=== PATIENT | male | born 1960 | race Caucasian/White ===

== ENCOUNTER 2024-09-16 16:59 | Inpatient (IN) | payer OTHER ==
[~2024-09-16] VITALS: Ht 182.9 cm; Wt 127.0 kg
[~2024-09-16 16:59] MED LIST: NS 1,000 ML IV SCH
[2024-09-16 17:53] LABS: BASOPHILS ABSOLUTE AUTO 0.02 K/mm3 (0.00-0.23); BASOPHILS PERCENT AUTO 0 % (0-2); EOSINOPHILS ABSOLUTE AUTO 0.03 K/mm3 (0.00-0.68); EOSINOPHILS PERCENT AUTO 0 % (0-6); Hematocrit 40.8 % (37.0-53.0); Hemoglobin 13.5 g/dL (13.5-17.5); IMMATURE GRAN ABSOLUTE AUTO 0.06 K/mm3 (0.00-0.10); IMMATURE GRAN PERCENT AUTO 0 % (0-1); LYMPHOCYTES ABSOLUTE AUTO 1.07 K/mm3 (0.84-5.20); LYMPHOCYTES PERCENT AUTO 8 % (21-46); MONOCYTES ABSOLUTE AUTO 1.34 K/mm3 (0.16-1.47); MONOCYTES PERCENT AUTO 10 % (4-13); Mean Corpuscular HGB 27.7 pg (26.0-34.0); Mean Corpuscular HGB Conc 33.1 g/dL (31.5-36.5); Mean Corpuscular Volume 84 fL (80-100); Mean Platelet Volume 9.1 fL (9.1-12.4); NEUTROPHILS ABSOLUTE AUTO 10.85 K/mm3 (1.96-9.15); NEUTROPHILS PERCENT AUTO 81 % (41-73); Platelet Count 199 K/mm3 (150-400); RDW Coefficient Variation 14.4 % (11.7-14.2); RDW Standard Deviation 44.1 fL (35.1-46.3); Red Blood Cell Count 4.87 M/mm3 (4.30-5.90); White Blood Cell Count 13.37 K/mm3 (4.00-11.30)
[2024-09-16 18:06] LABS: Albumin, Blood 3.6 g/dL (3.4-5.0); Bilirubin, Total 1.2 mg/dL (0.1-1.0); Bun/Creatinine Ratio 18.5 (12.0-20.0); Calcium, Blood 8.3 mg/dL (8.5-10.1); Creatinine, Blood 1.24 mg/dL (0.60-1.20); Globulin, Blood 3.6 g/dL (2.2-4.0); Potassium, Blood 4.2 mmol/L (3.5-5.5); Total Protein, Blood 7.2 g/dL (6.4-8.2)
[2024-09-16] MEDS ORDERED: NS 1,000 ML IV SCH (20:15)
[2024-09-16] MEDS ORDERED: HYDROmorphone HCl/Pf 1MG SYR IV ONE ×2 (20:15→22:00)
[2024-09-16] MEDS ORDERED: DiphenhydrAMINE HCl 50 MG/ML 1ML Vial IV ONE (20:25)
[2024-09-16] MEDS ORDERED: Metoclopramide HCl 5MG / ML 2ML Vial IV ONE (20:25)
[2024-09-16] MEDS ORDERED: CefTRIAXone Sodium 1,000 MG in NS 50 ML IV ONE (20:50)
[2024-09-16 20:56] LABS: C-REACTIVE PROTEIN, EXT RANGE 12.9 mg/dL (0.000-0.300)
[2024-09-16] MEDS ORDERED: OxyCODONE 10/Acetamin 325 TABLET PO PRN (23:20)
[2024-09-16] MEDS ORDERED: Acetaminophen 325 MG TABLET PO PRN (23:25)
[2024-09-16] MEDS ORDERED: CefTRIAXone Sodium 1,000 MG in NS 100 ML IV ONE (23:55)
[2024-09-17] LABS: Source, Urine Clean Catch
[2024-09-17 00:13] LABS: Bilirubin, Urine Neg (Neg); Blood, Urine 1+ (Neg); Glucose Qualitative, Urine Neg (Neg); Ketones, Urine Neg (Neg); Leukocyte Esterase, Urine 1+ (Neg); Nitrite, Urine Neg (Neg); Protein, Urine 1+ (Neg); Urobilinogen, Urine NORM (Normal)
[2024-09-17 00:38] LABS: Appearance, Urine Clear (Clear); Color, Urine Yellow (P-Yellow)
[2024-09-17 00:39] LABS: Bacteria Few /hpf; Red Blood Cells, Urine 0-2 /hpf (0-2); Squamous Epithelial Cells Few /hpf (Few)
[2024-09-17] MEDS ORDERED: Vancomycin HCL 2,500 MG in NS 500 ML IV ONE (01:40)
[2024-09-17] MEDS ORDERED: DiphenhydrAMINE HCl 50 MG/ML 1ML Vial IV ONE (04:45)
[2024-09-17] MEDS ORDERED: ALLO300 PO (05:21)
[2024-09-17] MEDS ORDERED: WARF7.5 PO (05:23)
[2024-09-17] MEDS ORDERED: MethylPREDNISolone Sod Succ 125 MG Vial IV ONE (05:30)
[2024-09-17] MEDS ORDERED: Morphine Sulfate 10 MG/ML 1MLSYR IV PRN (05:30)
[2024-09-17 07:17] LABS: BASOPHILS ABSOLUTE AUTO 0.03 K/mm3 (0.00-0.23); BASOPHILS PERCENT AUTO 0 % (0-2); EOSINOPHILS ABSOLUTE AUTO 0.08 K/mm3 (0.00-0.68); EOSINOPHILS PERCENT AUTO 1 % (0-6); Hematocrit 35.8 % (37.0-53.0); Hemoglobin 11.9 g/dL (13.5-17.5); IMMATURE GRAN ABSOLUTE AUTO 0.03 K/mm3 (0.00-0.10); IMMATURE GRAN PERCENT AUTO 0 % (0-1); LYMPHOCYTES ABSOLUTE AUTO 1.14 K/mm3 (0.84-5.20); LYMPHOCYTES PERCENT AUTO 13 % (21-46); MONOCYTES PERCENT AUTO 13 % (4-13); Mean Corpuscular HGB 28.4 pg (26.0-34.0); Mean Corpuscular HGB Conc 33.2 g/dL (31.5-36.5); Mean Corpuscular Volume 85 fL (80-100); Mean Platelet Volume 9.6 fL (9.1-12.4); NEUTROPHILS ABSOLUTE AUTO 6.13 K/mm3 (1.96-9.15); NEUTROPHILS PERCENT AUTO 72 % (41-73); Platelet Count 157 K/mm3 (150-400); RDW Coefficient Variation 14.5 % (11.7-14.2); RDW Standard Deviation 44.3 fL (35.1-46.3); Red Blood Cell Count 4.19 M/mm3 (4.30-5.90); White Blood Cell Count 8.51 K/mm3 (4.00-11.30)
[2024-09-17 07:19] LABS: International Normalized Ratio 2.09; Prothrombin Time Results 21.2 Sec (9.7-11.5)
[2024-09-17 07:27] LABS: Albumin/Globulin Ratio 0.9 (0.8-1.8); Bilirubin, Total 0.7 mg/dL (0.1-1.0); Bun/Creatinine Ratio 21.4 (12.0-20.0); Creatinine, Blood 0.89 mg/dL (0.60-1.20); Globulin, Blood 3.2 g/dL (2.2-4.0); Magnesium, Blood 2.1 mg/dL (1.6-2.4); Potassium, Blood 3.7 mmol/L (3.5-5.5); Total Protein, Blood 6.2 g/dL (6.4-8.2)
[2024-09-17 07:33] VITALS: BP 104/76
--- NOTE | 2024-09-17 07:52 | NUR ---
ASSUMPTION OF CARE/SHIFT SUMMARY PT ARRIVED TO ICU 10 VIA BED FROM ED AT 0500. PT IN MILD DISTRESS FROM SEVERE ITCHING ENGENDERED BY RASH/POTENTIAL REACTION TO ABX (VANCO VS ROCEPHIN). PT GIVEN 25MG BENADRYL IN ED. PT STILL ITCHING. PROVIDER CALLED AND ORDER PLACED FOR SOLUMEDROL. PT ALSO C/O 8/10 THROBBING PAIN IN RIGHT FOOT. ORDER PLACED FRO PRN MORPHINE IN ADDITION TO THE PERCOCET PT ALREADY RECEIVED AT 0220. NO CHEST PAIN/PRESSURE. NO SOB. SINUS RHYTHM WITH STABLE BP. PT TAKES WARFARIN. SAT >95% ON RA. LUNGS CLEAR IN ALL LOWERY. PT USES CPAP FOR AWA- BROUGHT OWN MACHINE WITH HIM. BOWEL SOUNDS PRESENT THROUGHOUT. NO AB PAIN, N/V. PT USES URINAL. PT STEADY ON FEET. SALINE LOCKED WITH NEW PIV IN LEFT WRIST. RIGHT AC PIV IS QUESTIONABLE DUE TO PAIN ON FLUSHING AFTER ADMINISTERING PAIN MEDS IV. NO PAIN WITH FIRST FLUSH OR MORPHINE HOWEVER. PT WORRIED THAT HE MAY NOT HAVE RECEIVED DOSE OF MORPHINE. REPORT GIVEN TO ONCOMING RN.
[2024-09-17] MEDS ORDERED: WARF5 PO (08:56)
[2024-09-17] MEDS ORDERED: Docusate Sodium 100 MG Cap PO SCH (09:00)
--- NOTE | 2024-09-17 09:17 | NUR ---
AM NOTE: PATIENT ALERT AND ORIENTED X4. ABLE TO MOVE ALL EXTREMITIES. RIGHT FOOT CELLULITIS WITH REDNESS, WARMTH AND SWELLING. REDNESS OUTLINED WITH SKIN MARKER. TELE READING SINUS RHYTHM WITH HR 60-70'S. DENIES CHEST PAIN/PRESSURE/PALPITATIONS. SBP 100'S. PPP. IV'S FLUIDS INFUSING PER EMAR. WEARING HOME CPAP WHEN SLEEPING, OTHERWISE ON ROOM AIR. SATING 96%. DENIES SOB/COUGH. EVEN AND UNLABORED RESPIRTATIONS. BOWEL TONES PRESENT IN ALL FOUR QUADRANTS. USING URINAL TO VOID. DIET ORDERS IN PLACE AND BLOOD SUGAR CHECKS ACHS. DENIES ABDOMINAL PAIN/NAUSEA. DR. MCBRIDE TO BEDSIDE THIS AM, THIS RN PRESENT FOR MD SILVA. PLAN FOR PODIATRY CONSULT THIS AFTERNOON WITH DR. MARQUEZ. MED NO TELE TRANSFER. THIS RN DISCUSSED POSSIBLE REACTION TO ONE OF THE TWO ANTIBIOITCS THAT WAS INFUSED IN EMERGENCY ROOM. PATIENT WITH HISTORY OF MRSA AND HOSPITALIZED BUT UNSURE IF HE RECEIVED VANCOMYCIN DURING THAT ADMISSION. PATIENT HAS HIVE LIKE RASH NOTED ON POSTERIOR LEFT THIGH AND BILATERAL FOREARMS. CALL LIGHT IN REACH. DENIES NEEDS AT THIS TIME.
[2024-09-17] MEDS ORDERED: DiphenhydrAMINE HCl 50 MG/ML 1ML Vial IV PRN (10:25)
--- NOTE | 2024-09-17 10:51 | NUR ---
UPDATE: PATIENT COMPLAINS OF INCREASED ITCHINESS. HIVES NOTED TO HAVE SPREAD FROM POSTERIOR LEFT THIGH TO BILATERAL ANTERIOR THIGHS WELL BILATERAL ARMS. DR. MCBRIDE CALLED BY THIS RN TO UPDATE. ORDERS FOR BENADRYL 25 MG IV Q6 PRN FOR ITCHINESS. ORDER IN PLACE. IV BENADRYL ADMINISTERED. INSTRUCTOR WEAVING WARNER UPDATED WELL.
[2024-09-17] MEDS ORDERED: Insulin Regular 100 UNIT/ML 10ML Vial SC SCH ×2 (11:30)
[2024-09-17 11:36] VITALS: BP 101/74
--- NOTE | 2024-09-17 13:57 | NUR ---
DR. MARQUEZ BY TO SEE PATIENT, THIS RN AT BEDSIDE FOR MD ROUNDING. WOUND CULTURE SENT TO LAB. DRESSING PLACED BY MD. WOUND CARE ORDERS IN PLACE. PLAN FOR MRI AND ARTERIAL STUDY. PATIENT IN RECLINER AT THIS TIME. CALL LIGHT IN REACH.
[2024-09-17] MEDS ORDERED: Vancomycin HCL 1,250 MG in NS 250 ML IV SCH (15:00)
[2024-09-17] MEDS ORDERED: Vancomycin HCL 1,500 MG in NS 250 ML IV SCH (15:00)
[2024-09-17 15:29] VITALS: BP 104/78
--- NOTE | 2024-09-17 16:05 | NUR ---
ULTRASOUND AT BEDSIDE AT THIS TIME.
[2024-09-17] MEDS ORDERED: FURO80 PO (16:47)
[2024-09-17] MEDS ORDERED: Bisoprolol Fumar5 MG PO (16:47)
[2024-09-17] MEDS ORDERED: GLIPIZIDE-METF1 EAC2 PO (16:48)
[2024-09-17] MEDS ORDERED: Prinivil10 MG PO (16:49)
[2024-09-17] MEDS ORDERED: LANS15EC PO (16:49)
[2024-09-17] MEDS ORDERED: SPIR25 PO (16:49)
[2024-09-17] MEDS ORDERED: MULTIVITAMIN PO (16:50)
[2024-09-17] MEDS ORDERED: EZET10 PO (16:51)
[2024-09-17] MEDS ORDERED: Vitamin D1000 UNI1 PO (16:51)
[2024-09-17] MEDS ORDERED: ATOR80 PO (16:52)
[2024-09-17] MEDS ORDERED: ASPI81CH PO (16:52)
[2024-09-17] MEDS ORDERED: Percocet 10-321 EACH PO (16:53)
[2024-09-17] MEDS ORDERED: AMBIEN10 MG PO (16:53)
[2024-09-17] MEDS ORDERED: Warfarin Sodium 5 MG Tab PO ONE (18:00)
--- NOTE | 2024-09-17 18:03 | NUR ---
SHIFT SUMMARY: PATIENT REMAINS ALERT AND ORIENTED X4. INTERMIT RIGHT FOOT PAIN WELL "EVERYWHERE" SORENESS. SEE PREVIOUS NOTES FOR UPDATES. REMAINS ON ROOM AIR, HOME CPAP AT BEDSIDE. TELE SHOWING SR WITH 1ST DEGREE BLOCK AND PVC'S. HR 70-80'S. SBP 100'S. USING URINAL TO VOID. TOLERATING PO DIET. ACHS BLOOD SUGARS. AT BEDSIDE. PLAN FOR RIGHT FOOT MRI. VASCULAR ULTRASOUND COMPLETED AND RESULTS PENDING. RIGHT FOOT DRESSING REMAINS C/D/I. HOME MED REC COMPLETED WITH LIST BROUGHT IN BY . HIVES IMPROVED WITH IV BENADRYL. CALL LIGHT IN REACH. DENIES NEEDS AT THIS TIME.
[2024-09-17 20:12] VITALS: BP 110/74
[2024-09-17] MEDS ORDERED: CefTRIAXone Sodium 2,000 MG in NS 100 ML IV SCH (21:00)
[2024-09-17] MEDS ORDERED: Linezolid 600 MG Tab PO SCH (21:00)
[2024-09-17] MEDS ORDERED: Zolpidem Tartrate 10 MG Tab PO ONE (21:15)
--- NOTE | 2024-09-17 22:24 | NUR ---
ASSUMPTION OF CARE: ASSUMED CARE OF PT AT 1905 WITH DANI LEWIS. PT IS IND IN RROM AND A&OX4 W/ AT BEDSIDE. PT USES BEDSIDE URINAL IND. PT HAS RIGHT LOWER FOOT CELLULITIS AND FOOT WRAPPED,CLEAN AND INTACT. PT HAS A PATENT IV TO THE L WRIST.PT TOOK MEDS WWW AND WAS GIVEN 2 UNITS OF REG INSULIN PER SLIDING SCALE (SEE EMAR). PT IS MED FLOOR STATUS ON TELE AND SR @71 W/BBB AND 1ST DEG BLOCK. PT HAS TOLERATED A SNACK WELL TONIGHT AND WEARS A CPAP WHILE SLEEPING AND RA WHEN AWAKE. PT HAS CALL LIGHT IN REACH AND MAKES NEEDS KNOWN.
[2024-09-18 02:53] VITALS: BP 107/67
[2024-09-18] MEDS ORDERED: Zolpidem Tartrate 5 MG Tab PO PRN (03:54)
[2024-09-18 04:04] LABS: Hematocrit 37.9 % (37.0-53.0); Hemoglobin 12.8 g/dL (13.5-17.5); Mean Corpuscular HGB 28.3 pg (26.0-34.0); Mean Corpuscular HGB Conc 33.8 g/dL (31.5-36.5); Mean Corpuscular Volume 84 fL (80-100); Mean Platelet Volume 9.2 fL (9.1-12.4); Platelet Count 201 K/mm3 (150-400); RDW Coefficient Variation 14.3 % (11.7-14.2); RDW Standard Deviation 43.8 fL (35.1-46.3); Red Blood Cell Count 4.53 M/mm3 (4.30-5.90); White Blood Cell Count 13.11 K/mm3 (4.00-11.30)
[2024-09-18 04:18] LABS: International Normalized Ratio 1.38; Prothrombin Time Results 14.4 Sec (9.7-11.5)
[2024-09-18 04:23] LABS: Albumin, Blood 2.9 g/dL (3.4-5.0); Anion Gap 10 mmol/L (3-11); Blood Urea Nitrogen 28 mg/dL (8-24); Bun/Creatinine Ratio 32.5 (12.0-20.0); CO2, Blood 25 mmol/L (21-32); Chloride, Blood 104 mmol/L (98-108); Creatinine, Blood 0.86 mg/dL (0.60-1.20); Glomerular Filtration Rate 98 (60-); Glucose, Blood 210 mg/dL (70-99); Magnesium, Blood 2.4 mg/dL (1.6-2.4); Phosphorus, Blood 4.2 mg/dL (2.5-4.9); Potassium, Blood 4.5 mmol/L (3.5-5.5); Sodium, Blood 134 mmol/L (136-145)
--- NOTE | 2024-09-18 05:11 | NUR ---
SHIFT SUMM: PT HAS BEEN RESTING AND RELAXING MOST OF THE SHIFT AND IND IN ROOM. PT HAS TOLERATED CPAP WELL WHILE ASLEEP AND RA WHEN AWAKE. PT USES BEDSIDE URINAL IND. PT RECIEVED PAIN MEDICATION NEEDED (SEE EMAR) GIVEN BY DANI LEWIS. PT HAS PATENT IV TO LEFT WRIST. PT REMAINS ON TELE W NSR IN THE 60-70'S THIS SHIFT AND HAS A 1ST DEG BLOCK AND BBB. WOUND DRESSING REMAINS INTACT AND CLEAN. PT HAS CALL LIGHT IN REACH AND CALLS TO MAKE NEEDS KNOWN. BED LOW AND LOCKED FOR SAFETY.
[2024-09-18 07:54] VITALS: BP 108/68
--- NOTE | 2024-09-18 08:54 | NUR ---
CARE ASSUMPTION PT WAS ASLEEP IN ROOM DURING REPORT FROM HUMAN RESOURCES PROFESSIONAL NURSE'S. UPON ENTERING THE ROOM PT WAS ASLEEP ON HIS RIGHT SIDE WEARING CPAP. PT WOKEN UP FROM VERBAL STIMULI AND ADJUSTED HIMSELF IN BED TO RECEIVE MORNING MEDICATION. PT SITUATED IN BED FOR BREAKFAST, UNDERSTOOD PLAN OF CARE FOR TODAY TO GO RECEIVE MRI AT 1000.
[2024-09-18] MEDS ORDERED: Insulin Regular 100 UNIT/ML 10ML Vial SC SCH (12:00)
--- NOTE | 2024-09-18 14:10 | NUR ---
SHIFT SUMMARY ([id number]) PT IS ALERT AND ORIENTED, ABLE TO AMBULATE INDEPENDENTLY IN ROOM, AND IS PLEASANT IN CONVERSATION. PT SLIDING SCALE CHANGED FROM LOW TO HIGH BEFORE LUNCH INSULIN COVERAGE. PT WENT DOWN FOR AN MRI AT 1000 THIS MORNING AND SPOKE WITH SENIOR PIPING DESIGNER DOC ABOUT RESULTS AFTER LUNCH. PT IS TO BE NPO AT MIDNIGHT FOR SUGERY IN THE AM AND NURSE TO HOLD EVENING WARFARIN DOSE PER GABRIELE VARELA. PT'S HAS BEEN AT BEDSIDE WITH PATIENT SINCE AFTER BREAKFAST AND IS PLEASANT WITH STAFF. PT IS TO BE MOVED TO MEDICAL FLOOR AND WILL GIVE REPORT TO MEDICAL FLOOR NURSE .
[2024-09-18 14:31] VITALS: BP 118/65
[2024-09-18 15:42] VITALS: BP 133/68
--- NOTE | 2024-09-18 15:53 | NUR ---
TRANSFER NOTE PT TRANSFERRED FROM ICU, REPORT RECEIVED FROM DEBBIE LANGFORD. PT ORIENTED TO THE ROOM. HIS IS AT THE BS. MEDICATED FOR PAIN PER THE EMAR.
--- NOTE | 2024-09-18 17:23 | NUR ---
SHIFT SUMMARY PT AOX4, INDEPENDENT IN THE ROOM. NO EVENTS PER TELE SINCE TRANSFER. REPOSITIONS SELF IN BED. SURGERY TOMORROW, NPO AT MIDNIGHT TONIGHT. CALLS AND MAKES HIS NEEDS KNOWN. NO ACUTE EVENTS SINCE THE TRANSFER. CALL LIGHT WITHIN REACH, BED LOCKED AND IN THE LOWEST POSITION. WILL REPORT TO ONCOMING NURSE.
[2024-09-18] MEDS ORDERED: Warfarin Sodium 5 MG Tab PO SCH (18:00)
[2024-09-18 20:34] VITALS: BP 121/76
[2024-09-18] MEDS ORDERED: Allopurinol 300 MG Tab PO SCH (21:00)
[2024-09-18] MEDS ORDERED: Atorvastatin 40 MG Tab PO SCH (21:00)
[2024-09-18] MEDS ORDERED: Aspirin 81 MG Chew PO SCH (21:00)
[2024-09-19] VITALS (18 sets, daily range): BP systolic 107–150; BP diastolic 74–108
--- NOTE | 2024-09-19 04:22 | NUR ---
SHIFT SUMMARY PT ALERT ORIENTED X 4 ABLE TO VERBALIZE NEEDS GETS UP AD MIKAYLA IN ROOM AND AMBULATES TO THE BATHROOM. HES BEEN NPO SINCE MIDNIGHT FOR SURGERY THIS AM. C/O RT FOOT PAIN MEDICATED WITH OXY AND MORPHINE WITH GOOD PAIN RELIEF. HES SCHEDULED TO HAVE HIS RT PINKY TOE AMPUTATED TODAY. REMAINS ON TELEMETRY AT NSR AT 91. VSS ON RA SATTING AT 93-97%. HE USES HIS CPAP AT NIGHT. HE C/O HAVING A HARD TIME GOING TO SLEEP. MEDICATED WITH AMBIEN AND HE SLEPT WELL. FS DONE AC AND HS WAS 211 HES RESTING IN BED AT THIS TIME WITH CALL LIGHT IN REACH
[2024-09-19] MEDS ORDERED: Pantoprazole Sodium 20 MG Tab PO SCH (06:00)
[2024-09-19 06:02] LABS: International Normalized Ratio 1.54
[2024-09-19] MEDS ORDERED: Furosemide 80 MG Tab PO SCH (09:00)
[2024-09-19] MEDS ORDERED: Metoprolol Succinate 50 MG TABCR PO SCH (09:00)
[2024-09-19] MEDS ORDERED: Lisinopril 10 MG Tab PO SCH (09:00)
[2024-09-19] MEDS ORDERED: Cholecalciferol 1000 Unit Tablet (=25MCG) PO SCH (09:00)
[2024-09-19] MEDS ORDERED: Spironolactone 25 MG Tab PO SCH (09:00)
[2024-09-19] MEDS ORDERED: Ezetimibe 10 MG Tab PO SCH (09:00)
--- NOTE | 2024-09-19 10:58 | NUR ---
Pt. is awake and welcomed my visit. Pt. is pleasant. Facilitated a life review and listened with interest and empathy. Pt. verbalized thta he is new to our community and is pleased with the care his is receiving. Pt. verbalized that sangita is big part of his life. Considered matters of sangita and belief. Prayed with Pt. Pt.verbalized gratitude for the spiritual care visit and welcomed this security clerk to return.
[2024-09-19] MEDS ORDERED: Bupivacaine 0.5% HCl 5 MG/ML 30MLVIAL ONE (14:18)
[2024-09-19] MEDS ORDERED: Lidocaine HCl 2% 10 ML SDA ONE (14:18)
[2024-09-19 14:19] LABS: BASOPHILS ABSOLUTE AUTO 0.03 K/mm3 (0.00-0.23); BASOPHILS PERCENT AUTO 0 % (0-2); EOSINOPHILS PERCENT AUTO 1 % (0-6); Hematocrit 37.8 % (37.0-53.0); Hemoglobin 12.1 g/dL (13.5-17.5); IMMATURE GRAN ABSOLUTE AUTO 0.08 K/mm3 (0.00-0.10); IMMATURE GRAN PERCENT AUTO 1 % (0-1); LYMPHOCYTES ABSOLUTE AUTO 1.61 K/mm3 (0.84-5.20); LYMPHOCYTES PERCENT AUTO 23 % (21-46); MONOCYTES ABSOLUTE AUTO 0.56 K/mm3 (0.16-1.47); MONOCYTES PERCENT AUTO 8 % (4-13); Mean Corpuscular HGB 27.8 pg (26.0-34.0); Mean Corpuscular Volume 87 fL (80-100); Mean Platelet Volume 9.3 fL (9.1-12.4); NEUTROPHILS ABSOLUTE AUTO 4.56 K/mm3 (1.96-9.15); NEUTROPHILS PERCENT AUTO 66 % (41-73); Platelet Count 196 K/mm3 (150-400); RDW Coefficient Variation 14.5 % (11.7-14.2); RDW Standard Deviation 46.1 fL (35.1-46.3); Red Blood Cell Count 4.35 M/mm3 (4.30-5.90); White Blood Cell Count 6.94 K/mm3 (4.00-11.30)
[2024-09-19] MEDS ORDERED: Lactated Ringer's 1,000 ML IV SCH (14:20)
[2024-09-19 14:36] LABS: Bun/Creatinine Ratio 36.4 (12.0-20.0); Creatinine, Blood 0.8 mg/dL (0.60-1.20); Potassium, Blood 4.5 mmol/L (3.5-5.5)
--- NOTE | 2024-09-19 14:50 | NUR ---
PT HAS 20G IV TO LEFT WRIST THAT FLUSHES WELL AND FLOWS TO GRAVITY.
--- NOTE | 2024-09-19 14:57 | NUR ---
PT BROUGHT FROM MED FLOOR TO DAY SURGERY FOR PROCEDURE. PT IS ACCOMPANIED BY HIS . History, Chart, Medications and Allergies reviewed before start of procedure. Lungs clear T/O to Auscultation. Patient confirms NPO status and agrees with scheduled surgery. Pre-Op teaching done. Pt verbalizes understanding. PT GLASSES TAKEN TO PACU FOR SAFEKEEPING. PT OTHER BELONGINGS LEFT IN PERSONAL ROOM ON MEDICAL FLOOR.
[2024-09-19] MEDS ORDERED: propofoL 20 ML IV ONE (14:59)
[2024-09-19] MEDS ORDERED: FentaNYL Citrate 50 MCG/ML 2 ML Injection ONE ×2 (14:59→16:07)
[2024-09-19] MEDS ORDERED: Ondansetron HCl 2 MG / ML 2ML Vial ONE (15:52)
[2024-09-19] MEDS ORDERED: Acetaminophen 500 MG Tab PO ONE (16:25)
[2024-09-19] MEDS ORDERED: Ondansetron HCl 2 MG / ML 2ML Vial IV PRN (17:30)
[2024-09-19] MEDS ORDERED: Acetaminophen/Aspirin/Caffeine 250/250/65 MG PO ONE (17:30)
[2024-09-19] MEDS ORDERED: Warfarin Sodium 5 MG Tab PO ONE (18:00)
--- NOTE | 2024-09-19 18:15 | NUR ---
SHIFT SUMMARY: PT A&O X4. PLEASANT AND COOPERATIVE WITH CARE. PT NPO UP UNTIL APPROX 1430 WHEN PROCEDURE FOR RIGHT 5TH TOE AMPUTATION TOOK PLACE. NEW ORDERS POST SURGERY FOR PARTIAL R. HEEL WEIGHT BEARING OF 50%. PT ARRIVED FROM SURGERY C/O SEVERE 03/01 MIGRAINE. TYLENOL AND FENTANYL GIVEN IN PACU. MORPHINE AND CAFFEINE TABLET PROVIDED ONCE PT ARRIVED BACK TO UNIT. VSS. TELE IN PLACE RUNNING SINUS RHYTHM IN THE 60'S. PT STATES MIGRAINE IS BEGINNING TO FEEL BETTER. CALL LIGHT IN REACH. AT BEDSIDE. BED IN LOWEST POSITION.
[2024-09-20 05:16] VITALS: BP 95/67
[2024-09-20 05:31] LABS: Hematocrit 35.6 % (37.0-53.0); Hemoglobin 11.3 g/dL (13.5-17.5); Mean Corpuscular HGB 27.4 pg (26.0-34.0); Mean Corpuscular HGB Conc 31.7 g/dL (31.5-36.5); Mean Corpuscular Volume 86 fL (80-100); Mean Platelet Volume 8.9 fL (9.1-12.4); Platelet Count 206 K/mm3 (150-400); RDW Coefficient Variation 14.3 % (11.7-14.2); RDW Standard Deviation 45.4 fL (35.1-46.3); Red Blood Cell Count 4.12 M/mm3 (4.30-5.90); White Blood Cell Count 8.25 K/mm3 (4.00-11.30)
--- NOTE | 2024-09-20 05:39 | NUR ---
SHIFT [place] REPORT PATIENT ALERT AND ORIENTED X4 , VERY COPRATIVE WITH CARE ,HAD RLE SURGERY YESTERDAY, MET WITH SCD ON LEFT LOWERLEG NOT IN USE WHICH WAS LATER REMOVED ,HE AMBULATE TO BATHROOM CAPPILLARY REFIL ON THE AMPUTEDED TOE X3, WARM TO TOUCH NIL COMPACTMENT SYDRROME.PT MEDICATED FOR PAIN PER EMAR, OTHER MEDICATION GIVEN. DRESSING INTACT NILL DRAINAGE.NURSING CARE RENDERED CALL LIGHT ANSWERED PROMPTLY , AND LEFT WITHIN REACH OF PATIENT.
--- NOTE | 2024-09-20 05:41 | NUR ---
SHIFT SUMMARY PT ALERT ORIENTED X 4 ABLE TO VERBALIZE NEEDS GETS UP AD MIKAYLA IN HIS ROOM. REMAINS 50% WEIGHT BEARING TO HIS RT HEEL. HE HAD A RT 5TH TOE AMPUTATION YESTERDAY. DRESSING INTACT TO THE AREA. C/O PAIN MEDICATED WITH OXY AND MORPHINE WITH GOOD PAIN RELIEF. HE WAS ABLE TO SLEEP OFF AND ON ALL SHIFT. VSS ON RA SATTING AT 96-98%. HE WEARS A CPAP AT NIGHT DUE TO DX OF SLEEP APNEA. REMAINS ON TELEMETRY AT [facility] AT 61 WITH 1ST DEGREE BLOCK. HE REQUESTED A AMBIEN AT BEDTIME. RESTING WELL AT THIS TIME WITH CALL LIGHT IN REACH
[2024-09-20 05:48] LABS: Calcium, Blood 8.3 mg/dL (8.5-10.1); Creatinine, Blood 0.87 mg/dL (0.60-1.20); International Normalized Ratio 1.45; Potassium, Blood 4.3 mmol/L (3.5-5.5); Prothrombin Time Results 15.1 Sec (9.7-11.5)
[2024-09-20 07:43] VITALS: BP 99/66
[2024-09-20 11:35] VITALS: BP 112/78
[2024-09-20 15:46] VITALS: BP 99/64
--- NOTE | 2024-09-20 16:49 | NUR ---
NO ACUTE CHANGES, POSSIBLE DSICHARGE TOMORROW, DR MARQUEZ ROUNDED AND WILL CHANGE THE DRESSING TOMORROW, CALL LIGHT WITH IN REACH, MEDICATED FOR PAIN AND BLOOD SUGAR COVERAGE. PLEASANT TO CARE
[2024-09-20] MEDS ORDERED: Warfarin Sodium 5 MG Tab PO SCH (18:00)
[2024-09-20 20:13] VITALS: BP 109/75
[2024-09-20 23:31] VITALS: BP 130/75
--- NOTE | 2024-09-21 04:39 | NUR ---
SHIFT SUMMARY PT ALERT ORIENTED X 4 ABLE TO VERBALIZE NEEDS GETS UP IN ROOM AD MIKAYLA. HES REMINDED THAT HES 50% WEIGHT BEARING TO RT FOOT AND TO USE HIS HEEL. REMAINS ON ZYVOX ORDERED FOR RT FOOT INFECTION. HE HAD HIS RT 5TH TOE AMPUTATED ON 09/19. FS DONE AC AND HS WAS 175. HE C/O PAIN AND THROBBING TO HIS RT FOOT MEDICATED WITH OXY AND MORPHINE WITH GOOD PAIN RELIEF. HE ALSO REQUESTED AMBIEN TO HELP HIM SLEEP. HE SLEPT MOST OF NIGHT HE REMAINS ON A CPAP AT NIGHT. RESTING IN BED AT THIS TIME WITH CALL LIGHT IN REACH
[2024-09-21 05:20] VITALS: BP 112/72
[2024-09-21 07:26] LABS: International Normalized Ratio 1.67; Prothrombin Time Results 17.2 Sec (9.7-11.5)
[2024-09-21 07:47] VITALS: BP 105/75
[2024-09-21 10:33] VITALS: BP 120/75
[2024-09-21 11:48] VITALS: BP 122/84
[2024-09-21 15:33] VITALS: BP 109/84
[2024-09-21] MEDS ORDERED: Warfarin Sodium 5 MG Tab PO SCH (18:00)
[2024-09-21 19:20] LABS: Magnesium, Blood 1.9 mg/dL (1.6-2.4)
[2024-09-21 19:46] LABS: Albumin, Blood 2.2 g/dL (3.4-5.0); Anion Gap 16 mmol/L (3-11); Blood Urea Nitrogen 33 mg/dL (8-24); CO2, Blood 22 mmol/L (21-32); Calcium, Blood 9.1 mg/dL (8.5-10.1); Chloride, Blood 101 mmol/L (98-108); Glomerular Filtration Rate 85 (60-); Glucose, Blood 243 mg/dL (70-99); Phosphorus, Blood 3.5 mg/dL (2.5-4.9); Sodium, Blood 135 mmol/L (136-145)
--- NOTE | 2024-09-21 19:47 | NUR ---
SHIFT SUMMARY PT A&OX4. PT ADMITTED DUE TO CELLULITIS OF R FOOT. PT POD2 OF R PINKY TOE AMP. PT REPORTS PAIN. PAIN MANAGED PER EMAR. COUMADIN RESTARTED TODAY. PODIATRY CAME TO DO DRESSING CHANGE. WOUND C/D/I. PT WORKED WITH PHYSICAL THERAPY TODAY. PT 50% WEIGHT BEARING ON R FOOT. PT FOLLOWS PT ORDERS. PT EATS ADEQUATE. PT HAS ACHS BLOOD SUGAR ORDERS, PT RECEIVED INSULIN COVERAGE. PT ON ROOM AIR. USES CPAP WHEN ASLEEP. PT ON TELE. TELE REPORTED THIS EVENING AT 1808 13 BEAT RUN OF TRIGEMENY. PT ASYMPTOMATIC. PT REPORTS "NO CHEST PAIN/SOB" DR. KWAN NOTIFIED. ORDERED STAT MAG AND RENAL PANAL AND CBC AND BASIC METABOLIC PANAL TO BE CHECKED IN AM. PT IN BED, BED IN LOWEST POSITION. CALL LIGHT IN REACH. VSS.
--- NOTE | 2024-09-21 20:00 | NUR ---
ASSUMED CARE OF PT AT 1900. BEDSIDE REPORT RECEIVED. PT PRESENTS IN BED. PARTICIPATES IN BEDSIDE REPORT. ALERT AND ORIENTED. PLEASANT AND COOPERATIVE WITH CARE AND ASSESSMENT. PT STATES THAT HIS AMPUTATION SITE OF RIGHT FOOT 5TH DIGIT IS NOT HAVING PAIN AT THE MOMENT. HAS BEEN COMPLIANT WITH KEEPING FOOT ELEVATED ON PILLOWS. WILL REVIEW CHART AND PLAN OF CARE FOR THIS PT.
[2024-09-21 20:04] VITALS: BP 109/72
[2024-09-22 00:06] VITALS: BP 100/66
--- NOTE | 2024-09-22 04:22 | NUR ---
PT HAS BEEN MEDICATED WITH 2 PERCOCET 10/325MG FOR COMPLAINT OF "STINGING" PAIN IN HIS RIGHT FOOT AT SURGICAL SITE. HAS BEEN MEDICATED WITH 4 MG MORPHINE FOR BREAKTHROUGH PAIN. PT HAS BEEN ABLE TO REST SOME THIS NIGHT. WILL CONTINUE TO MONITOR PT, AND WILL REPORT OFF TO ONCOMING RN.
[2024-09-22 04:31] VITALS: BP 98/68
[2024-09-22 05:32] LABS: BASOPHILS ABSOLUTE AUTO 0.03 K/mm3 (0.00-0.23); BASOPHILS PERCENT AUTO 0 % (0-2); EOSINOPHILS ABSOLUTE AUTO 0.12 K/mm3 (0.00-0.68); EOSINOPHILS PERCENT AUTO 1 % (0-6); Hematocrit 39.1 % (37.0-53.0); Hemoglobin 12.8 g/dL (13.5-17.5); IMMATURE GRAN ABSOLUTE AUTO 0.18 K/mm3 (0.00-0.10); IMMATURE GRAN PERCENT AUTO 2 % (0-1); LYMPHOCYTES ABSOLUTE AUTO 1.66 K/mm3 (0.84-5.20); LYMPHOCYTES PERCENT AUTO 18 % (21-46); MONOCYTES ABSOLUTE AUTO 0.72 K/mm3 (0.16-1.47); MONOCYTES PERCENT AUTO 8 % (4-13); Mean Corpuscular HGB 27.6 pg (26.0-34.0); Mean Corpuscular HGB Conc 32.7 g/dL (31.5-36.5); Mean Corpuscular Volume 84 fL (80-100); Mean Platelet Volume 8.7 fL (9.1-12.4); NEUTROPHILS ABSOLUTE AUTO 6.49 K/mm3 (1.96-9.15); NEUTROPHILS PERCENT AUTO 71 % (41-73); Platelet Count 259 K/mm3 (150-400); RDW Coefficient Variation 14.3 % (11.7-14.2); RDW Standard Deviation 43.6 fL (35.1-46.3); Red Blood Cell Count 4.63 M/mm3 (4.30-5.90)
[2024-09-22 05:45] LABS: International Normalized Ratio 2.51; Prothrombin Time Results 25.1 Sec (9.7-11.5)
[2024-09-22 05:51] LABS: Bun/Creatinine Ratio 31.7 (12.0-20.0); Calcium, Blood 8.4 mg/dL (8.5-10.1); Creatinine, Blood 0.88 mg/dL (0.60-1.20); Potassium, Blood 3.8 mmol/L (3.5-5.5)
[2024-09-22 07:46] VITALS: BP 110/69
[2024-09-22] MEDS ORDERED: LINE600 PO (11:46)
--- NOTE | 2024-09-22 17:51 | NUR ---
PT DISCHARGED TO HOME WITH . ALL VALUABLES RETURNED AND SENT HOME WITH THE PT. DISCHARGE EDUCATION PROVIDED AND EDUCATED ON AT TIME OF DISCHARGE.
== END 2024-09-22 13:31 | disposition home or self-care (01) | DRG 854 ==
LOC: ER 16:59 → ICUE 23:59 → MEDS 23:59 → ERHOLD 23:59 → ICUE 09-17 04:58 → MEDS 09-18 15:31
PROVIDERS: Internal Medicine; Podiatrist Foot & Ankle Surgery; Student in an Organized Health Care Education/Training Program; ADMIT Internal Medicine
PROC: 3E03328 Introduction of Oxazolidinones into Peripheral Vein, Percutaneous Approach (ICD-10-PCS; 2024-09-17)
PROC: 3E03329 Introduction of Other Anti-infective into Peripheral Vein, Percutaneous Approach (ICD-10-PCS; 2024-09-17)
PROC: 0Y6X0Z1 Detachment at Right 5th Toe, High, Open Approach (ICD-10-PCS; 2024-09-19)
PROC: 0QBQ0ZZ Excision of Right Toe Phalanx, Open Approach (ICD-10-PCS; principal; 2024-09-19 15:00)
DX: A41.01 Sepsis due to Methicillin susceptible Staphylococcus aureus (principal); E66.2 Morbid (severe) obesity with alveolar hypoventilation; L03.115 Cellulitis of right lower limb; E87.1 Hypo-osmolality and hyponatremia; Q21.12 Patent foramen ovale; L97.516 Non-pressure chronic ulcer of other part of right foot with bone involvement without evidence of necrosis; N39.0 Urinary tract infection, site not specified; M86.171 Other acute osteomyelitis, right ankle and foot; E11.621 Type 2 diabetes mellitus with foot ulcer; E11.69 Type 2 diabetes mellitus with other specified complication; E11.42 Type 2 diabetes mellitus with diabetic polyneuropathy; I25.10 Atherosclerotic heart disease of native coronary artery without angina pectoris; I25.2 Old myocardial infarction; I70.235 Atherosclerosis of native arteries of right leg with ulceration of other part of foot; Z86.73 Personal history of transient ischemic attack (TIA), and cerebral infarction without residual deficits; G43.909 Migraine, unspecified, not intractable, without status migrainosus; I10 Essential (primary) hypertension; M10.9 Gout, unspecified; K21.9 Gastro-esophageal reflux disease without esophagitis; Z79.01 Long term (current) use of anticoagulants; Z95.2 Presence of prosthetic heart valve; L84 Corns and callosities; Z88.1 Allergy status to other antibiotic agents; Z79.899 Other long term (current) drug therapy; Z86.14 Personal history of Methicillin resistant Staphylococcus aureus infection; Z68.38 Body mass index [BMI] 38.0-38.9, adult
CPT/HCPCS: 36415; 73630; 73701; 73718; 80048; 80053; 80069; 81001; 82947; 83036; 83605; 83735; 85025; 85027; 85610; 85651; 86140; 87040; 87070; 87071; 87075; 87077; 87086; 87147; 87186; 87205; 88305; 88311; 93926; 96361; 96365; 96375; 96376; 97116; 97162; 97530; 99284-25; A9270; J0696; J1171; J1200; J1815; J2003; J2270; J2405; J2470; J2704; J2765; J2919; J3010; J3370; J7030; J7040; J7120; Q9967

== ENCOUNTER 2024-12-07 20:57 | Emergency (ER) | payer MEDICARE ==
[~2024-12-07] VITALS: Ht 182.9 cm; Wt 124.7 kg
[~2024-12-07 20:57] MED LIST changes: +ALLO300 PO; +AMBIEN10 MG PO; +ASPI81CH PO; +ATOR80 PO; +BASAGLAR K100 UNIT/3 SC; +BUTALBITAL-ASA1 EACH PO; +Bisoprolol Fumar5 MG PO; +EZET10 PO; +FURO40 PO; +GLIPIZIDE-METF1 EAC2 PO; +JANTOVEN5 M2 PO; +LANS15EC PO; +LINE600 PO; +MIRALAX17 GM PO; +MULTIVITAMIN PO; -NS 1,000 ML IV SCH; +PREG75 PO; +Percocet 10-321 EACH PO; +Prinivil10 MG PO; +SENN187 PO; +SPIR25 PO; +SULTRIDS PO; +VISBIOME 112.51 EACH PO; +Vitamin D1000 UNI1 PO; +WARF5 PO; +WARF7.5 PO; +ZANAFLEX413 PO
[2024-12-07] MEDS ORDERED: Trimethoprim/Sulfamethoxazole DS Tab PO ONE (23:55)
[2024-12-08] MEDS ORDERED: SULTRIDS PO (00:03)
== END 2024-12-08 00:34 | disposition home or self-care (01) ==
LOC: ER 20:57
DX: S80.11XA Contusion of right lower leg, initial encounter (principal); E11.40 Type 2 diabetes mellitus with diabetic neuropathy, unspecified; G47.33 Obstructive sleep apnea (adult) (pediatric); W01.0XXA Fall on same level from slipping, tripping and stumbling without subsequent striking against object, initial encounter; Z86.73 Personal history of transient ischemic attack (TIA), and cerebral infarction without residual deficits; Z79.899 Other long term (current) drug therapy; Z79.01 Long term (current) use of anticoagulants; Z79.82 Long term (current) use of aspirin; Z88.5 Allergy status to narcotic agent; Z88.1 Allergy status to other antibiotic agents
CPT/HCPCS: 73590; 99283-25; A9270

== ENCOUNTER 2025-01-25 12:42 | Emergency (ER) | payer MEDICARE ==
[~2025-01-25] VITALS: Ht 188 cm; Wt 104.3 kg
[2025-01-25] MEDS ORDERED: Silver Sulfadiazine 1% Cream 25 APPLIC/25 GM Tube TOP ONE (13:50)
== END 2025-01-25 14:35 | disposition home or self-care (01) ==
LOC: ER 12:42
DX: T25.222A Burn of second degree of left foot, initial encounter (principal); Z88.8 Allergy status to other drugs, medicaments and biological substances; Z79.01 Long term (current) use of anticoagulants; Z79.899 Other long term (current) drug therapy; Z79.82 Long term (current) use of aspirin; E11.9 Type 2 diabetes mellitus without complications; E11.21 Type 2 diabetes mellitus with diabetic nephropathy; Z59.89 Other problems related to housing and economic circumstances; X19.XXXA Contact with other heat and hot substances, initial encounter
CPT/HCPCS: 16020; 90471; 90715; 99282-25; A9270